=== PATIENT | male | born 1985 | race African-American/Black ===

== ENCOUNTER 2021-05-14 00:26 | Emergency (ER) | payer OTHER ==
[2021-05-14 00:54] LABS: Urine Blood 1+ (Negative); Urine Glucose Negative (Negative); Urine Protein 2+ (Negative); Urine Specific Gravity >=1.030 (1.005-1.030); Urine pH 5.5 (5.0-7.0)
[2021-05-14 01:12] LABS: Barbiturates NEGATIVE (NEGATIVE); Benzodiazepines NEGATIVE (NEGATIVE); Cocaine NEGATIVE (NEGATIVE); METHAMPHETAM NEGATIVE (NEGATIVE); Methadone NEGATIVE (NEGATIVE); Opiates NEGATIVE (NEGATIVE); Phencyclidine NEGATIVE (NEGATIVE); THC Cannibis NEGATIVE (NEGATIVE)
[2021-05-14 01:17] LABS: Absolute Lymphocytes (CBC) 2.4 K/uL (0.7-4.9); Basophils % 0.5 % (0-1.3); Hematocrit 37.8 % (39.6-49.0); Lymphocytes % 23.3 % (15.3-44.8); MPV 7.8 fL (7.6-11.3); RBC Red Blood Cell Count 4.11 M/uL (4.33-5.43)
[2021-05-14 01:21] LABS: Protime INR 0.99
[2021-05-14 01:40] LABS: ALT/SGPT 21 U/L (12-78); AST/SGOT 16 U/L (15-37); Albumin 3.5 g/dL (3.4-5.0); Alkaline Phosphatase 60 U/L (45-117); BUN Blood Urea Nitrogen 13 mg/dL (7-18); Bicarbonate 28 mmol/L (21-32); Bilirubin Direct 0.1 mg/dL (0-0.2); Bilirubin Total 0.3 mg/dL (0.2-1.0); Glucose Level 116 mg/dL (74-106); Potassium 3.5 mmol/L (3.5-5.1); Protein, Total 6.5 g/dL (6.4-8.2); Sodium Level 146 mmol/L (136-145)
--- NOTE | 2021-05-14 02:14 | EDPHYS ---
Physician Documentation [facility] Name: Nikkie Aaron Age: 35 yrs Sex: Male : 1985 Arrival Date: 05/14/2021 Time: 00:27 Bed 8 Private MD: ED Physician Gideon Bass HPI: 05/14 01:49 This 35 yrs old Black Male presents to ER via EMS with complaints of Overdose. jr8 01:49 Severity of symptoms: At their worst the symptoms were mild in the emergency department jr8 the symptoms are unchanged. It is unknown whether or not the patient has had similar symptoms in the past. The patient has not recently seen a physician. Patient brought in by EMS after being called out for possible overdose at assisted. Stated that patient may have got a hold of K2. Initially was unresponsive per EMS but now doing well and can answer all questions appropriately. Patient sleepy but verbally responsive upon arrival . Historical: - Allergies: 00:28 No Known Allergies; bb - Immunization history:: Adult Immunizations unknown, unknown. - Social history:: Smoking status: unknown. ROS: 01:49 Eyes: Negative for injury, pain, redness, and discharge, ENT: Negative for injury, jr8 pain, and discharge, Neck: Negative for injury, pain, and swelling, Cardiovascular: Negative for chest pain, palpitations, and edema, Respiratory: Negative for shortness of breath, cough, wheezing, and pleuritic chest pain, Abdomen/GI: Negative for abdominal pain, nausea, vomiting, diarrhea, and constipation, Back: Negative for injury and pain, MS/Extremity: Negative for injury and deformity, Skin: Negative for injury, rash, and discoloration, Neuro: Negative for headache, weakness, numbness, tingling, and seizure. Exam: 01:49 Constitutional: This is a well developed, well nourished patient who is awake, alert, jr8 and in no acute distress. ENT: Nares patent. No nasal discharge, no septal abnormalities noted. Tympanic membranes are normal and external auditory canals are clear. Oropharynx with no redness, swelling, or masses, exudates, or evidence of obstruction, uvula midline. Mucous membranes moist. Cardiovascular: Regular rate and rhythm with a normal S1 and S2. No gallops, murmurs, or rubs. Normal PMI, no JVD. No pulse deficits. Respiratory: Lungs have equal breath sounds bilaterally, clear to auscultation and percussion. No rales, rhonchi or wheezes noted. No increased work of breathing, no retractions or nasal flaring. Abdomen/GI: Soft, non-tender, with normal bowel sounds. No distension or tympany. No guarding or rebound. No evidence of tenderness throughout. Skin: Warm, dry with normal turgor. Normal color with no rashes, no lesions, and no evidence of cellulitis. MS/ Extremity: Pulses equal, no cyanosis. Neurovascular intact. Full, normal range of motion. Neuro: Awake and alert, GCS 15, oriented to person, place, time, and situation. Cranial nerves II-XII grossly intact. Motor strength 5/5 in all extremities. Sensory grossly intact. Vital Signs: 00:27 BP 106 / 70; Pulse 91; Resp 16 S; Temp 97.6(O); Pulse Ox 100% on R/A; Weight 89.81 kg bb (R); Height 5 ft. 10 in. (177.80 cm) (R); 02:15 BP 117 / 68; Pulse 78; Resp 18; Pulse Ox 100% on R/A; Pain 0/10; wg 00:27 Body Mass Index 28.41 (89.81 kg, 177.80 cm) bb MDM: 00:29 Patient medically screened. [facility] :49 Data reviewed: vital signs, nurses notes, lab test result(s), EKG. Data interpreted: 8 Pulse oximetry: on room air is 100 %. Interpretation: normal. Counseling: I had a detailed discussion with the patient and/or guardian regarding: the historical points, exam findings, and any diagnostic results supporting the discharge/admit diagnosis, lab results, the need for outpatient follow up, a family practitioner, to return to the emergency department if symptoms worsen or persist or if there are any questions or concerns that arise at home. ED course: Patient hemodynamically stable. No vomiting. No altered mentation present at this time. Labs stable. Will continue to monitor patient for a while longer. If well will be discharged back to assisted . 05/14 00:29 Order name: Acetaminophen 8 05/14 00:29 Order name: Basic Metabolic Panel; Complete Time: :49 jr 05/14 00:29 Order name: CBC with Diff; Complete Time: 01:8 05/14 00:29 Order name: ETOH Level; Complete Time: :8 05/14 00:29 Order name: Hepatic Function; Complete Time: :8 05/14 00:29 Order name: PT-INR; Complete Time: :8 05/14 00:29 Order name: Ptt, Activated; Complete Time: :8 05/14 00:29 Order name: Salicylate; Complete Time: :8 05/14 00:29 Order name: Urine Drug Screen; Complete Time: :8 05/14 00:29 Order name: EKG; Complete Time: 00:8 05/14 00:29 Order name: EKG - Nurse/Tech; Complete Time: :8 05/14 00:29 Order name: IV Saline Lock; Complete Time: 00:8 05/14 00:29 Order name: Acetaminophen Level; Complete Time: : EDMS 05/14 00:54 Order name: Urine Dipstick-Ancillary; Complete Time: : EDNC 05/14 00:29 Order name: Labs collected and sent; Complete Time: 00:8 05/14 00:29 Order name: Urine Dipstick-Ancillary (obtain specimen); Complete Time: 00:55 jr8 Administered Medications: No medications were administered Disposition: 02:45 Co-signature as Attending Physician, Gideon Bass MD. pkl Disposition Summary: 05/14/21 02:13 Discharge Ordered Location: Law Enforcement jr8 Problem: new jr8 Symptoms: have improved jr8 Condition: Stable jr8 Diagnosis - Altered mental status, unspecified jr8 - Drug abuse counseling and surveillance jr8 Followup: jr8 - With: Private Physician - When: 2 - 3 days - Reason: Recheck today's complaints, Continuance of care, Re-evaluation by your physician Discharge Instructions: - Discharge Summary Sheet jr8 - Illegal Drug Use Information, Adult jr8 Forms: - Medication Reconciliation Form jr8 - Thank You Letter jr8 - Antibiotic Education jr8 - Prescription Opioid Use jr8 Signatures: Dispatcher [employer] Gideon Alaniz MD MD pkl Gloria Zhou, ANKUR RN Perry Mcconnell PA PA jr8
--- NOTE | 2021-05-14 02:14 | ER ---
Nurse's Notes [facility] Name: Nikkie Aaron Age: 35 yrs Sex: Male : 1985 Arrival Date: 05/14/2021 Time: 00:27 Bed 8 Private MD: Diagnosis: Altered mental status, unspecified;Drug abuse counseling and surveillance Presentation: 05/14 00:27 Chief complaint: EMS states: they were toned out to [facility] for report of pt with bb possible overdose on "bad K2". Coronavirus screen: At this time, the client does not indicate any symptoms associated with coronavirus-19. Ebola Screen: No symptoms or risks identified at this time. Initial Sepsis Screen: Does the patient meet any 2 criteria? No. Patient's initial sepsis screen is negative. Does the patient have a suspected source of infection? No. Patient's initial sepsis screen is negative. Risk Assessment: Do you want to hurt yourself or someone else? Unable to obtain. Onset of symptoms was May 14, 2021. 00:27 Method Of Arrival: EMS: [facility] bb 00:27 Acuity: JONO 2 bb Triage Assessment: 02:26 General: Appears comfortable, well groomed, well developed, Behavior is calm, flat. wg Pain: Denies pain. Neuro: Level of Consciousness is awake, alert, obeys commands, lethargic, Oriented to person, place, time, situation. Cardiovascular: No deficits noted. Respiratory: No deficits noted. Historical: - Allergies: 00:28 No Known Allergies; bb - Immunization history:: Adult Immunizations unknown, unknown. - Social history:: Smoking status: unknown. Screenin:28 Abuse screen: Denies threats or abuse. Denies injuries from another. Nutritional wg screening: No deficits noted. Tuberculosis screening: No symptoms or risk factors identified. Fall Risk Mental Status-. Vital Signs: 00:27 BP 106 / 70; Pulse 91; Resp 16 S; Temp 97.6(O); Pulse Ox 100% on R/A; Weight 89.81 kg bb (R); Height 5 ft. 10 in. (177.80 cm) (R); 02:15 BP 117 / 68; Pulse 78; Resp 18; Pulse Ox 100% on R/A; Pain 0/10; wg 00:27 Body Mass Index 28.41 (89.81 kg, 177.80 cm) cirilo ED Course: 00:27 Patient arrived in ED. bb 00:28 Triage completed. bb 00:28 Arm band placed on Patient placed in an exam room, on a stretcher, on monitoring coordinator, bb on pulse oximetry. EKG completed in triage. Results shown to MD. 00:29 Perry Stephens PA is PHCP. jr 00:29 Gideon Bass MD is Attending Physician. jr8 00:49 Inserted saline lock: 20 gauge in left hand, using aseptic technique. Blood collected. jb5 00:49 Straight cath inserted, using sterile technique, 16 Fr. Specimen obtained. Returned jb5 clear yellow urine. Patient tolerated well. 00:50 Acetaminophen Sent. jb5 00:50 Acetaminophen Level Sent. jb5 00:50 Basic Metabolic Panel Sent. jb5 00:50 CBC with Diff Sent. jb5 00:50 ETOH Level Sent. jb5 00:50 Hepatic Function Sent. jb5 00:50 PT-INR Sent. jb5 00:50 Ptt, Activated Sent. jb5 00:50 Salicylate Sent. jb5 02:25 Michael Moreno, RN is Primary Nurse. wg 02:27 IV discontinued, intact, bleeding controlled, No redness/swelling at site. Pressure wg dressing applied. 02:28 Patient has correct armband on for positive identification. Bed in low position. Side wg rails up X2. Pt in cuffs. 02:28 No provider procedures requiring assistance completed. wg Administered Medications: No medications were administered Outcome: 02:13 Discharge ordered by . jr8 02:27 Discharged to Law Enforcement wg 02:27 Condition: stable 02:27 Discharge instructions given to patient, police, Instructed on discharge instructions, follow up and referral plans. Demonstrated understanding of instructions, follow-up care. 02:28 Patient left the ED. wg Signatures: Gloria Zhou RN RN bb Perry Stephens PA PA jr8 Jessica William jb5 Michael Moreno RN
[2021-05-14 02:36] VITALS: BP 106/70; TEMP 97.6; O2SAT 100
--- NOTE | 2021-05-15 10:45 | EKG ---
Test Date: 2021-05-14 Test Time: 00:34:21 Consumer Marketing Manager: YESENIA MEASUREMENT RESULTS: Intervals: Rate: 88 NV: 166 QRSD: 88 QT: 372 QTc: 450 Sharon: P: 53 NV: 166 QRS: 78 T: 54 INTERPRETIVE STATEMENTS: Normal sinus rhythm ST elevation, probably due to early repolarization Borderline ECG No previous ECG available for comparison Electronically Signed On 05-15-21 10:40:51 CDT by Danny Rosas
== END 2021-05-14 02:28 ==
LOC: ER 00:26
DX: R41.82 Altered mental status, unspecified (principal); Z71.51 Drug abuse counseling and surveillance of drug abuser
CPT/HCPCS: 36415; 51702; 80048; 80076; 80307; 80320; 80329; 81003; 85025; 85610; 85730; 93005; 99284